=== PATIENT | female | born 2000 | race Hispanic/Latino ===

== ENCOUNTER 2019-03-09 10:40 | Inpatient (IN) | payer MEDICAID, OTHER, SELFPAY ==
[2019-03-11] MEDS: Lactated Ringer's 1,000 ML IV SCH (21:30)
[2019-03-11 22:47] VITALS: BMI 33.6
[2019-03-11] MEDS ORDERED: Promethazine HCl 25 MG/ML VIAL IM PRN (23:55)
[2019-03-11] MEDS ORDERED: hydrALAZINE 20 MG/ML VIAL SLOW IVP PRN (23:55)
[2019-03-11] MEDS ORDERED: Acetaminophen 500 MG TAB PO PRN (23:55)
[2019-03-11] MEDS ORDERED: Docusate 100 MG CAP PO PRN (23:55)
[2019-03-11] MEDS ORDERED: NS / Oxytocin 40 units/1000ml 1,000 ML IV PRN (23:55)
[2019-03-11] MEDS ORDERED: Ondansetron PF 4 MG/2 ML Vial IVP PRN (23:55)
[2019-03-11] MEDS ORDERED: Lidocaine 1% (PF) 30 ML VIAL SC PRN (23:55)
--- NOTE | 2019-03-11 23:55 | PDOC.LDHP ---
Labor and Delivery H&P Chief complaint: scheduled induction HPI: Patient is a 19yo @ 40.2 weeks by 15.5 wk sono here for eIOL. CAMACHO 03/09/19 She reports feeling 1-2 contractions 3-4 days ago, but has not been feeling them recently. Denies vaginal bleeding, denies loss of fluid. Reports that she is feeling the baby move. Denies nausea, vomiting, diarrhea, constipation. Denies headaches, vision changes, chest pain, sob. No complications during the , though has had 44lb weight gain. PNL neg. GBS neg. Plans on having an epidural. Plans on breast feeding. Would like to have contraception after delivery, but is unsure of what type at this time. PCP: [facility]) Dating criteria: second trimester ultrasound Grav: 1 Para: 0 Current complications: other (44lb weight gain) Abnormal US findings: No Past Medical History: None Current medications: pre-grant vitamins Previous surgical history: none Allergies/Adverse Reactions: Allergies Allergy/AdvReac Type Severity Reaction Status Date / Time No Known Allergies Allergy Verified 03/11/19 22:36 Social history: none - Physical Exam Vital signs reviewed and normal: yes General: NAD, resting Heart: RRR Lungs: nonlabored breathing Abdomen: NTTP Extremeties: no edema [place] contractions every: sporadic - Vaginal Exam cm dilated: 0 Effacement: 0% Station: -3 - OB Labs Blood type: A RH: positive Antibody Screen: negative HIV: negative RPR: negative HEPSAg: negative 1 hour GCT: negative (104) GBS: negative Rubella: immune Additional Labs: Gonorrhea/Chlamydia neg Quant gold neg - Assessment L&D Assessment: elective induction at term - Plan Plan: admit to L&D, cervical ripening, labor augmentation if indicated -: 19yo @ 40.2 weeks by 15.5wk oscaro here for eIOL. #eIOL #term IUP, 40.2 weeks -closed/thick/high @ 2330 on 03/11/19 -José score 1 -vss -reactive strip, baseline 145, accelerations, no decelerations -IVF -NPO -start cytotec x 1 -recheck in 4 hours -type and screen -plan for epidural Fluids: LR @ 125 ml/hr Diet: NPO Dispo: admit to L&D for eIOL, will place cytotec and recheck in 4hrs Code: Full code Addendum - Attending - Attending Attestation Date/Time: 03/12/19 2855 I personally evaluated the patient and discussed the management with Dr. Bhat and team. I agree with the History, Examination, Assessment and Plan documented above with any addition or exceptions noted below.
[2019-03-12 00:11] LABS: Hemoglobin 14.1 g/dL (12.0-16.0); Mean Corpuscular HGB CONC 34.2 g/dL (32.0-36.0); Mean Corpuscular Hemoglobin 31.1 pg (25.0-35.0); Mean Corpuscular Volume 90.9 fL (78.0-98.0); Mean Platelet Volume 8.8 fL (7.4-10.4); Platelet Count 246 thou/uL (130-400); RBC Distribution Width 12.6 % (11.5-14.5); Red Blood Cell (RBC) Count 4.52 mill/uL (4.00-5.20); White Blood Cell (WBC) Count 12.9 thou/uL (4.8-10.8)
[2019-03-12] MEDS: Lactated Ringer's 1,000 ML IV SCH ×3 (00:15→21:47)
[2019-03-12] MEDS: Misoprostol 100 MCG TAB VAG SCH ×2 (00:16→16:28)
[2019-03-12 00:51] LABS: Syphilis Antibody Nonreactive (Nonreactive); Syphilis Antibody Index 0.04 S/CO (<1.00 Non-Reactive)
[2019-03-12 01:01] LABS: HBSAg Index 0.11 S/CO (0-0.99); Hep B Surf Ag Non-Reactive S/CO (NonReactive)
--- NOTE | 2019-03-12 04:48 | PDOC.LDPN ---
Labor & Delivery Progress Note - Subjective Subjective: comfortable, painful contractions - Objective Vital signs reviewed and normal: yes General: NAD, resting Dilation: 1 Effacement: 90% Station: -2 FHT: variability present [place] contractions every: 2min Plan: continue plan of care -: 19yo @ 40.3 weeks by 15.5wk carrie here for eIOL. #eIOL #term IUP, 40.3 weeks -closed/thick/high @ 2330 on 03/11/19 -/-2 @ 0415 on 03/12/19 -vss -reactive strip -IVF -NPO -contractions q2min, hold cytotec for now -recheck @0815 -plan for epidural Fluids: LR @ 125 ml/hr Diet: NPO Dispo: admit to L&D for eIOL, hold cytotec for now and recheck in 4hrs Code: Full code
[2019-03-12] MEDS ORDERED: Butorphanol Tartrate 1 MG/ML VIAL ONE (06:56)
--- NOTE | 2019-03-12 09:12 | PDOC.LDPN ---
Labor & Delivery Progress Note - Subjective Subjective: comfortable - Objective Vital signs reviewed and normal: yes General: NAD, resting, breathing through contractions Uterine fundus: non tender Dilation: 1 Effacement: 90% Station: -2 FHT: category 1 (accels present, no decels, moderate variability. Baseline 130) , variability present [place] contractions every: 2-3min Plan: continue plan of care -: 19yo @ 40.3 weeks by 15.5wk sono here for eIOL. #eIOL, term IUP, 40.3 weeks - /-2 @ 0845 on 03/12/19, unchanged from previous check - Maternal VSS - Cat 1 strip, accels present, no decels, Moderate variability and baseline of 130 - contractions q2-3min - s/p 1 cytotec, however due to frequency of contractions with hold on second cytotec for now. Consider placing if contrations space out to less than 3/10min and no progress at next check - IVF, NPO -recheck @1245 -plan for epidural Fluids: LR @ 125 ml/hr Diet: NPO Dispo: eIOL, hold cytotec for now and recheck in 4hrs Code: Full code Addendum - Attending - Attending Attestation Date/Time: 03/12/19 1302 I personally evaluated the patient and discussed the management with Dr. Thao. I agree with the History, Examination, Assessment and Plan documented above with any addition or exceptions noted below.
--- NOTE | 2019-03-12 13:38 | PDOC.LDPN ---
Labor & Delivery Progress Note - Subjective Subjective: painful contractions - Objective Vital signs reviewed and normal: yes General: breathing through contractions Dilation: 1 Effacement: 90% (95%) Station: 0 FHT: category 1 (135/moderate/accels) [place] contractions every: q2-5min -: 19yo @ 40.3 weeks by 15.5wk sono here for eIOL. #eIOL, term IUP, 40.3 weeks - / at 12:00 - Maternal VSS - Cat 1 strip, contractions every 2-5 minutes - s/p 1 cytotec, however due to frequency of contractions with hold on second cytotec for now. Consider placing if contractions space out to less than 3/10min - IVF, NPO -recheck @1600 -plan for epidural Fluids: LR @ 125 ml/hr Diet: NPO Dispo: IOL, hold cytotec for now and recheck in 4hrs Code: Full code
[2019-03-12] MEDS: Butorphanol Tartrate 1 MG/ML VIAL SLOW IVP PRN ×2 (14:36→18:49)
[2019-03-12] MEDS ORDERED: NS w/ Oxytocin 10 units 500 ML ONE (16:04)
[2019-03-12] MEDS ORDERED: NS / Oxytocin 40 units/1000ml 1,000 ML IV PRN (16:36)
[2019-03-12] MEDS ORDERED: Lactated Ringer's 250 ML IV SCH (16:45)
[2019-03-12] MEDS ORDERED: NS w/ Oxytocin 10 units 500 ML IV SCH ×2 (16:45)
--- NOTE | 2019-03-12 16:47 | PDOC.LDPN ---
Labor & Delivery Progress Note - Subjective Subjective: comfortable - Objective Vital signs reviewed and normal: yes General: NAD, resting Dilation: 3 Effacement: 90% Station: 0 FHT: category 1, category 2 [place] contractions every: 2-3min Procedures: AROM AROM: clear fluid Plan: continue plan of care -: 19yo @ 40.3 weeks by 15.5wk carrie here for eIOL. #IOL, term IUP, 40.3 weeks - /0 at 1630, AROM (clear) - CTX q2-4 min, Pit @2 -Cat I/II strip, periods of minimal variability could have been to stadol. Will try D5 - Cat 1 strip, contractions every 2-5 minutes - recheck in 1630 - plan for epidural Fluids: LR @ 125 ml/hr with PRN dextrose Diet: NPO Dispo: IOL Code: Full code
[2019-03-12] MEDS ORDERED: Dextrose 5% in Water 1,000 ML IV SCH (17:15)
[2019-03-12] MEDS ORDERED: Dextrose 5%-Lactated Ringers 1,000 ML IV SCH (19:00)
--- NOTE | 2019-03-12 19:59 | PDOC.LDPN ---
Labor & Delivery Progress Note - Subjective Subjective: painful contractions - Objective Vital signs reviewed and normal: yes General: breathing through contractions Uterine fundus: non tender SVE: / FHT: category 2 (minimal variability) [place] contractions every: 5min Plan: continue plan of care -: 19yo @ 40.3 weeks by 15.5wk carrie here for eIOL. #IOL, term IUP, 40.3 weeks - 0 at 1900, s/p AROM - CTX q5 min -Cat II strip, periods of minimal variability could have been to stadol, continue D5 - recheck at 2100 - plan for epidural Fluids: LR @ 125 ml/hr with PRN dextrose Diet: NPO Dispo: IOL Code: Full code Addendum - Attending - Attending Attestation Date/Time: 03/12/192117 I personally evaluated the patient and discussed the management with Dr. Bhat. I agree with the History, Examination, Assessment and Plan documented above with any addition or exceptions noted below.
[2019-03-12] MEDS ORDERED: Fentanyl 4 mcg/Bup 0.1% Cadd 100 ML ONE (20:43)
[2019-03-12] MEDS ORDERED: Lidocaine 1% (PF) 30 ML VIAL ONE (23:23)
[2019-03-12] MEDS ORDERED: NS / Oxytocin 40 units/1000ml 1,000 ML ONE (23:23)
[2019-03-13] MEDS ORDERED: Misoprostol 200 MCG TAB ONE ×4 (01:50→02:39)
--- NOTE | 2019-03-13 02:20 | PDOC.OPDEL ---
OB Operative/Delivery Note - Additional Findings/Plan Compilations/Other Findings: Delivering Physician: Dr. Art Huizar, Dr. July Bhat Attending: Dr. Dio Lynn Procedure: Spontaneous Vaginal Delivery Anesthesia: epidural QBL: 473 ml Pre-op Diagnosis: 1. Term intrauterine in labor 2. Hx of 44lb weight gain during Post-op Diagnosis: 1. Term intrauterine , delivered 2. same as above Indications: A 19y/o female presents to L&D for elective induction. Delivery Note: This is 19yo F now P1 @ 40.4wks who delivered a viable F infant at 0114am. Placenta delivered at 0120am. Following an uneventful antepartum course, a vigorous female was delivered over an intact perineum in the OA position. Anterior Shoulder and then remainder of the body delivered. No nuchal cord. The head was held down and mouth and nares were bulb suctioned. Cord clamped and cut and cord blood collected. Placenta delivered intact in the Day presentation with a 3 vessel cord noted. Fundal massage was performed and the fundus was firm. The cervix and vagina were inspected and found to have a second degree vaginal and perineal laceration, which was repaired with 30-vicryl CT suture in the usual fashion with good approximation and hemostasis. No local anesthetic was needed. Afterward 800mg cytotec were placed MS. Infant went to nursery in good condition for routine care. Apgars were 8 /9 at 1 & 5 minutes, respectively. Patient tolerated delivery well and went to after routine recovery/care. Addendum - Attending - Attending Attestation Date/Time: 03/13/19 8347 I was present for the entire delivery except the end of the repair, where I had to step out to attend a jacques ivory. Dr. Jimenez, thankfully, was able to step in for the remainder.
[2019-03-13] MEDS ORDERED: Benzocaine-Menthol 82.5 ML CAN TOP PRN (04:12)
[2019-03-13] MEDS ORDERED: Preparation H Ointment 28 GM TUBE PR PRN (04:12)
[2019-03-13] MEDS ORDERED: Misoprostol 200 MCG TAB VAG PRN (04:12)
[2019-03-13] MEDS ORDERED: Lanolin Ointment 7 GM TUBE TOP PRN (04:12)
[2019-03-13] MEDS ORDERED: hydrALAZINE 20 MG/ML VIAL SLOW IVP PRN (04:12)
[2019-03-13] MEDS ORDERED: Ondansetron PF 4 MG/2 ML Vial IVP PRN (04:12)
[2019-03-13] MEDS ORDERED: NS / Oxytocin 40 units/1000ml 1,000 ML IV SCH (04:12)
[2019-03-13] MEDS ORDERED: Milk Of Magnesia 30 ML UDCUP PO PRN (04:12)
[2019-03-13] MEDS ORDERED: Bisacodyl 10 MG SUPP PR PRN (04:12)
[2019-03-13] MEDS ORDERED: Ampicillin 125 MG/5 ML VIAL SLOW IVP SCH (04:16)
[2019-03-13] MEDS ORDERED: PHARMACY TO DOSE GENTAMICIN IVPB PRN (04:19)
[2019-03-13] MEDS: Misoprostol 100 MCG TAB VAG SCH ×2 (04:23→04:24)
[2019-03-13] MEDS: Lactated Ringer's 1,000 ML IV SCH (04:23)
[2019-03-13] MEDS: Ibuprofen 800 MG TAB PO SCH ×3 (04:37→21:40)
[2019-03-13] MEDS ORDERED: Acetaminophen 325 MG TAB PO PRN (04:41)
[2019-03-13] MEDS: Ampicillin 2 GM in Sodium Chloride 0.9% 100 ML IVPB SCH ×4 (05:46→23:42)
[2019-03-13 06:16] LABS: #Eosinphils 0.1 thou/uL (0.0-0.7); #Lymphocytes 1.9 thou/uL (1.20-3.40); #Monocytes 1.5 thou/uL (0.11-0.59); #Neutrophils 15.1 thou/uL (1.40-6.50); %Basophils 0.1 % (0.0-1.0); %Eosinophils 0.5 % (0.0-10.0); %Lymphocytes 10.2 % (28.0-48.0); %Neutrophils 81.3 % (31.0-61.0); Hemoglobin 11.2 g/dL (12.0-16.0); Mean Corpuscular HGB CONC 35.2 g/dL (32.0-36.0); Mean Corpuscular Hemoglobin 32.4 pg (25.0-35.0); Mean Corpuscular Volume 92.1 fL (78.0-98.0); Mean Platelet Volume 7.5 fL (7.4-10.4); Platelet Count 211 thou/uL (130-400); RBC Distribution Width 12.5 % (11.5-14.5); Red Blood Cell (RBC) Count 3.44 mill/uL (4.00-5.20); White Blood Cell (WBC) Count 18.5 thou/uL (4.8-10.8)
[2019-03-13] MEDS: Gentamicin Sulfate 320 MG in Sodium Chloride 0.9% 100 ML IVPB SCH (06:26)
[2019-03-13] MEDS ORDERED: Gentamicin Sulfate 415 MG in Sodium Chloride 0.9% 100 ML IVPB SCH (07:00)
[2019-03-13] MEDS: Docusate Calcium (SURFAK) 240 MG CAP PO SCH ×2 (08:23→21:40)
[2019-03-13] MEDS: Ferrous Sulfate 325 MG TAB PO SCH ×2 (08:25→17:34)
[2019-03-13] MEDS ORDERED: Adacel (T-DAP) 0.5 ML SYRINGE IM ONE (09:00)
[2019-03-14] MEDS: Ibuprofen 800 MG TAB PO SCH ×3 (05:03→21:49)
[2019-03-14] MEDS: Ampicillin 2 GM in Sodium Chloride 0.9% 100 ML IVPB SCH (05:04)
[2019-03-14 05:52] LABS: Hemoglobin 11.2 g/dL (12.0-16.0); Mean Corpuscular HGB CONC 34.7 g/dL (32.0-36.0); Mean Corpuscular Hemoglobin 32.4 pg (25.0-35.0); Mean Corpuscular Volume 93.3 fL (78.0-98.0); Mean Platelet Volume 7.6 fL (7.4-10.4); Platelet Count 207 thou/uL (130-400); RBC Distribution Width 12.6 % (11.5-14.5); Red Blood Cell (RBC) Count 3.47 mill/uL (4.00-5.20)
[2019-03-14] MEDS: Gentamicin Sulfate 320 MG in Sodium Chloride 0.9% 100 ML IVPB SCH (06:21)
--- NOTE | 2019-03-14 07:17 | PDOC.PP ---
Post Progress Note Post Day #: 1 Subjective: Mother feels well this AM. Denies significant pain, improved from yesterday. Some cramping but about like a regular menses. Less bleeding than menses. Walkeing the hallway. Eating without difficulty. PO intake tolerated: yes Flatus: yes Ambulation: yes Vital Signs (12 hours) Temp Pulse Resp BP 03/13/19 23:40 98.6 F 78 16 103/60 Weight Weight 83.915 kg - Physical Examination General: NAD Cardiovascular: no m/r/g, RRR Respiratory: clear to auscultation bilaterally, non-labored breathing Abdominal: + bowel sounds, lochia, no distention, appropriately TTP Deviation from normal: 2 cm below umbilicus Extremities: negative homans (B) Neurological: no gross focal deficits Psychiatric: A&Ox3, normal affect Result Diagrams: 03/14/19 05:41 Additional Labs: Post Labs Blood Type A POSITIVE 03/12/19 01:01 Hep Bs Antigen Non-Reactive S/CO (NonReactive) 03/12/19 00:05 (1) care and examination Code(s): Z39.2 - ENCOUNTER FOR ROUTINE FOLLOW-UP Status: Acute - Assessment/Plan PP day 1 delivered by at 40.4 wks - ambulating, tolerating PO - pain well controlled - less bleeding than menses PP endometritis - WBC 18.0-> 10.0 - pain well controlled, uterus moderately tender to palpation - denies significant discharge - afebrile for 24 hours - stop amp/gent, start PO augmentin Addendum - Attending - Attending Attestation Date/Time: 03/14/19 1140 I personally evaluated the patient and discussed the management with Dr. Huizar. I agree with the History, Examination, Assessment and Plan documented above with any addition or exceptions noted below.
[2019-03-14] MEDS: Docusate Calcium (SURFAK) 240 MG CAP PO SCH ×2 (08:37→21:50)
[2019-03-14] MEDS: Amoxicillin/Potassium Clav 875 MG TAB PO SCH ×2 (08:37→21:50)
[2019-03-14] MEDS: Ferrous Sulfate 325 MG TAB PO SCH ×2 (08:40→15:34)
--- NOTE | 2019-03-15 01:43 | PDOC.PP ---
Post Progress Note Post Day #: 2 Subjective: Patient feels well, looking forward to going home. Denies fevers, chills, sweats. Tolerating PO intake, ambulating w/o difficulty. Less bleeding than regular menses. Denies headache or visual changes. PO intake tolerated: yes Flatus: yes Ambulation: yes Vital Signs (12 hours) Temp Pulse Resp BP Pulse Ox 03/14/19 20:00 98 03/14/19 19:30 97.8 F 77 12 120/78 98 03/14/19 15:00 97.7 F Weight Weight 83.915 kg - Physical Examination General: NAD Cardiovascular: no m/r/g, RRR Respiratory: clear to auscultation bilaterally, non-labored breathing Abdominal: + bowel sounds, lochia, no distention, appropriately TTP Fundus firm & at: 2 cm below umbilicus Extremities: negative homans (B) Neurological: no gross focal deficits Psychiatric: A&Ox3, normal affect Result Diagrams: 03/14/19 05:41 Additional Labs: Post Labs Blood Type A POSITIVE 03/12/19 01:01 Hep Bs Antigen Non-Reactive S/CO (NonReactive) 03/12/19 00:05 (1) care and examination Code(s): Z39.2 - ENCOUNTER FOR ROUTINE FOLLOW-UP Status: Acute - Assessment/Plan PP day 2 delivered by at 40.4 wks - ambulating, tolerating PO - pain well controlled - less bleeding than menses PP endometritis - WBC 18.0-> 10.0 - pain well controlled - denies significant discharge - afebrile for 48 hours - cont PO augmentin for total of 1 week Dispo: d/c home this AM, f/u at [facility] in 2 weeks Addendum - Attending - Attending Attestation Date/Time: 03/16/19 8613 I personally evaluated the patient and discussed the management with Dr. Huizar. I agree with the History, Examination, Assessment and Plan documented above with any addition or exceptions noted below.
[2019-03-15] MEDS: Ibuprofen 800 MG TAB PO SCH ×2 (05:11→13:27)
[2019-03-15] MEDS: Docusate Calcium (SURFAK) 240 MG CAP PO SCH (08:36)
[2019-03-15] MEDS: Amoxicillin/Potassium Clav 875 MG TAB PO SCH (08:36)
[2019-03-15] MEDS: Ferrous Sulfate 325 MG TAB PO SCH (08:36)
[2019-03-15 10:18] VITALS: BP 109/61; TEMP 98.7
== END 2019-03-15 17:35 | disposition home or self-care (01) | DRG 806 ==
LOC: EDBD → L&D 03-11 19:48 → 3SW 03-13 04:15
PROVIDERS: ADMIT Emergency Medicine; ATTEND Emergency Medicine
PROC: 10E0XZZ Delivery of Products of Conception, External Approach (ICD-10-PCS; principal; 2019-03-13)
PROC: 0KQM0ZZ Repair Perineum Muscle, Open Approach (ICD-10-PCS; 2019-03-13)
PROC: 10907ZC Drainage of Amniotic Fluid, Therapeutic from Products of Conception, Via Natural or Artificial Opening (ICD-10-PCS; 2019-03-13)
DX: O48.0 Post-term pregnancy (principal); O86.12 Endometritis following delivery; Z37.0 Single live birth; Z3A.40 40 weeks gestation of pregnancy; O70.1 Second degree perineal laceration during delivery; O76 Abnormality in fetal heart rate and rhythm complicating labor and delivery
CPT/HCPCS: 36415; 51702; 76815; 80170; 85025; 85027; 86780; 86850; 86900; 86901; 87340; J0290; J0595; J1580; J2001; J2590; J3490